=== PATIENT | female | born 1975 | race Caucasian/White ===

== ENCOUNTER → 2016-05-13 | Outpatient (CLI) | payer OTHER ==
[~2016-05-13] MED LIST: DIAZ5TAB PO; DIPH25TA26 PO; HYDR-3307 PO; ONDA4TAB10 PO; OXYC-229 PO; OXYC10TA6 PO; OXYC1TAB9 PO; TIZA2TAB PO
[2016-05-13 16:19] LABS: HEMOGLOBIN 14.2 g/dL (11.7-16.4)
[2016-05-13 16:32] LABS: BLOOD UREA NITROGEN 14 mg/dL (7-18)
== END | disposition home or self-care (01) ==
LOC: STAR 15:13
PROVIDERS: ATTEND Neurological Surgery
DX: Z01.818 Encounter for other preprocedural examination (principal); R07.9 Chest pain, unspecified; M47.897 Other spondylosis, lumbosacral region
CPT/HCPCS: 36415; 71020; 72110; 80048; 81003; 85025; 85610; 85730; 93005

== ENCOUNTER → 2016-07-19 | Outpatient (CLI) | payer OTHER ==
[~2016-07-19] MED LIST changes: +OXYC5TAB3 PO
== END | disposition home or self-care (01) ==
LOC: CFH 10:44
PROVIDERS: ATTEND Registered Nurse Registered Nurse First Assistant
DX: M48.06 Spinal stenosis, lumbar region (principal); M43.16 Spondylolisthesis, lumbar region; Z98.890 Other specified postprocedural states; Z98.1 Arthrodesis status
CPT/HCPCS: 72100

== ENCOUNTER → 2017-03-03 | Outpatient (CLI) | payer OTHER ==
[~2017-03-03] MED LIST changes: -OXYC-229 PO; +OXYC-307 PO
== END | disposition home or self-care (01) ==
LOC: CFH 13:05
DX: N63.10 Unspecified lump in the right breast, unspecified quadrant (principal)
CPT/HCPCS: 77066

== ENCOUNTER 2017-03-31 12:19 | Day surgery (SDC) | payer OTHER ==
[~2017-03-31] VITALS: Ht 157.5 cm; Wt 78.9 kg
[~2017-03-31 12:19] MED LIST changes: +BUPIVACAINE/PF 0.5% ONE; +TIZA2CAP PO
[2017-03-31 12:33] VITALS: BP 116/82
[2017-03-31] MEDS ORDERED: LACTATED RINGERS 1,000 ML IV SCH (12:35)
[2017-03-31] MEDS ORDERED: MIDAZOLAM 1 MG/ML, 2ML ONE (13:02)
[2017-03-31] MEDS ORDERED: FENTANYL PF 250 MCG/5ML ONE (13:02)
[2017-03-31] MEDS ORDERED: PROPOFOL 10 MG/ML, 20ML ONE (13:03)
[2017-03-31] MEDS ORDERED: ROCURONIUM 10 MG/ML,10ML ONE (13:03)
[2017-03-31] MEDS ORDERED: DEXAMETHASONE 4 MG/ML, 1ML ONE ×2 (13:04)
[2017-03-31] MEDS ORDERED: GLYCOPYRROLATE 0.4 MG/2 ML, 2ML ONE (13:04)
[2017-03-31] MEDS ORDERED: NEOSTIGMINE 1 MG/ML, 10ML ONE (13:04)
[2017-03-31] MEDS ORDERED: ONDANSETRON 2MG/ML, 2ML ONE (13:04)
[2017-03-31] MEDS ORDERED: CLINDAMYCIN 150 MG/ML, 6ML ONE (13:39)
[2017-03-31] MEDS ORDERED: ONDANSETRON 2MG/ML, 2ML IVPush PRN (14:00)
[2017-03-31] MEDS ORDERED: PROMETHAZINE 12.5 MG SUPP PR PRN (14:00)
[2017-03-31] MEDS ORDERED: LABETALOL 5MG/ML, 20ML IV PRN (14:00)
[2017-03-31] MEDS ORDERED: OXYcodone 5 MG/5 ML ORAL.SOL UDC PO PRN (14:00)
[2017-03-31] MEDS ORDERED: HYDROmorphone 1 MG/ML, 1ML IV PRN (14:00)
[2017-03-31] MEDS ORDERED: MEPERIDINE/PF 25MG/0.5ML IVPush PRN (14:00)
[2017-03-31] MEDS ORDERED: hydrALAzine 20 MG/ML, 1ML IV PRN (14:00)
[2017-03-31] MEDS ORDERED: ACETAMINOPHEN 325 MG TABLET PO PRN (14:00)
[2017-03-31] MEDS ORDERED: BUPIVACAINE/PF-EPI 0.5% 1:200K INFIL ONE (14:10)
[2017-03-31] MEDS ORDERED: KETOROLAC 30 MG/1 ML ONE (14:59)
[2017-03-31] MEDS ORDERED: ACETAMINOPHEN 650 MG/20.3 ML UDC ONE (14:59)
[2017-03-31] MEDS ORDERED: FENTANYL PF 100 MCG/2ML ONE (14:59)
[2017-03-31] MEDS ORDERED: ACETAMINOPHEN 325 MG TABLET ONE (14:59)
[2017-03-31] MEDS ORDERED: OXYcodone 5 MG/5 ML ORAL.SOL UDC ONE (15:00)
[2017-03-31] MEDS: FENTANYL PF 100 MCG/2ML IV PRN ×2 (15:03→15:21)
[2017-03-31] MEDS ORDERED: KETOROLAC 30 MG/1 ML IVPush STA (15:06)
== END 2017-03-31 16:45 ==
LOC: OUT 12:19
PROVIDERS: ATTEND Surgery
DX: D24.1 Benign neoplasm of right breast (principal); Z98.890 Other specified postprocedural states; Z88.8 Allergy status to other drugs, medicaments and biological substances; Z91.040 Latex allergy status; Z87.891 Personal history of nicotine dependence
CPT/HCPCS: 19120; 88305; J1100; J1885; J2250; J2405; J2704; J2710; J3010; J3490; J7120

== ENCOUNTER → 2018-12-12 | Outpatient (CLI) | payer OTHER ==
[~2018-12-12] MED LIST changes: +ACET-1600 PO; -BUPIVACAINE/PF 0.5% ONE; -HYDR-3307 PO; +HYDR-36 PO; +OXYC-432 PO; -OXYC1TAB9 PO; -TIZA2TAB PO; +TIZA2TAB2 PO
== END | disposition home or self-care (01) ==
LOC: CFH 11:40
PROVIDERS: ATTEND Surgery
DX: R10.11 Right upper quadrant pain (principal)
CPT/HCPCS: 76700

== ENCOUNTER → 2019-10-08 | Outpatient (CLI) | payer OTHER ==
[~2019-10-08] MED LIST changes: +HYDR-3246 PO; -HYDR-36 PO; -TIZA2TAB2 PO; +TIZA2TAB4 PO
== END | disposition home or self-care (01) ==
LOC: CFH 07:51
PROVIDERS: ATTEND Obstetrics & Gynecology
DX: Z12.31 Encounter for screening mammogram for malignant neoplasm of breast (principal); R92.8 Other abnormal and inconclusive findings on diagnostic imaging of breast
CPT/HCPCS: 76641; 77063; 77067